=== PATIENT | female | born 1970 | race Caucasian/White ===

== ENCOUNTER 2020-07-08 17:45 | Observation (INO) ==
--- OUTSIDE RECORDS SUMMARY | 2020-07-08 17:47 | External Medical Summary | Continuity of Care Document ---
:1970 Author Name Moisés Lundy, Provider Address Unavailable Unavailable , Care Team Providers Name Role Phone Jayy [email or web address] Unavailable Unavailable Unavailable Assessments Assessed Problems:Otitis externa Problems Otitis externa (380.10) (H60.90) Allergies and Adverse Reactions Morphine Sulfate TABS (Allergy) Percocet TABS (Allergy) Medications Synthroid 75 MCG Oral Tablet Refills: 0 Procedures History of Laparoscopy With Excision Of Ectopic Status: Completed History of Tubal Ligation Status: Comple ana Immunizations Immunizations not documented Family History Mother Family history of Diabetes Mellitus (V18.0) Status: Active Interventions Follow-ups/ReferralsFollow-up as needed; Done: 30 Nov 2009 Plan of Treatment Planned Observations Planned Goals not documented Results No Known Results Results not documented Encounters Appointment; Jayy Lopez M.D. 30-Nov-2009 13:30 Encounter Diagnosis: Problem not documented
--- OUTSIDE RECORDS SUMMARY | 2020-07-08 17:48 | External Medical Summary | Continuity of Care Document ---
:1970 Author Name Moisés Lundy, Provider Address Unavailable Unavailable , Care Team Providers Name Role Phone Jayy Lopez [email or web address] Unavailable Unavailable Unavailable Assessments Assessed Problems:Otitis externa [...]
--- NOTE | 2020-07-08 18:02 | Emergency Department Note ---
History of Present Illness General Chief complaint: Hand Injury/Pain Stated complaint: LEFT HAND CELLULITIS Time Seen by Provider: 07/08/20 17:50 Source: patient Limitations: no limitations History of Present Illness Provider complaint: Left hand pain Onset (ago): day(s) Location: upper extremity and left Radiation: extremity (To forearm) Severity: severe Pain Consistency: + constant Maximum Pain Intensity: 7 Exacerbated By: + movement Associated symptoms: no chest pain, no cough, no fever/chills, no nausea/vomi ting and no shortness of breath Treatments prior to arrival: NSAID This is a 49-year-old female who presents with left hand pain starting last week. The patient stated that the hand near her thumb and wrist started hurting for no reason. It started to get red and swollen. It has progressed over the weekend and so she made appointment to see [facility]. She saw the orthopedic doctor today, Dr. Guerra, who did an x-ray and then subsequently an MRI. She was later called by the nurse from the office and told that her MRI showed cellulitis and she needed to go to the hospital to get admitted for IV antibiotics. She complains of 7 out of 10 pain to the left hand. Is worse when she moves the hand. The pain sometimes goes into her forearm. The pain is constant. She denies any associated fever, chills, chest pain, shortness of breath, cough or cold symptoms, abdominal pain, vomiting, diarrhea or known exposure to COVID-19. She denies any urinary symptoms. She has been taking ibuprofen which slightly improves her pain. Home Medications Home Medications Medication Instructions Recorded Confirmed Type desvenlafaxine succinate [Pristiq] 100 mg PO DAILY 07/08/20 07/08/20 History lamotrigine [Lamictal] 50 mg PO BID 07/08/20 07/08/20 History omeprazole 20 mg PO DAILY 07/08/20 07/08/20 History Allergies Allergy/AdvReac Type Severity Reaction Status Date / Time No Known Allergies Allergy Unverified 07/08/20 18:48 Past Med/Surg History Medical History (Updated 07/08/20 @ 19:58 by Nabor Lucio MD) Anxiety Depression Social History (Updated 07/08/20 @ 18:00 by Nabor Lucio MD) Smoking Status: Never smoker current occupational status: employed Feels Safe at Home: Yes Review of Systems See HPI for pertinent positives & negatives. and A total of 10 systems reviewed and were otherwise negative Physical Exam Vital Signs Vital Signs - 24 hr 07/08/20 17:47 07/08/20 19:00 07/08/20 19:30 Temperature 36.7 C Temperature Source Oral Pulse Rate 93 H 76 75 Pulse Rate from SpO2 Sensor 76 Respiratory Rate 20 15 16 Blood Pressure 159/104 H 149/93 H 153/86 H Blood Pressure Mean 122 111 95 Blood Pressure Position Sitting Pulse Oximetry 98 96 96 Oxygen Delivery Method Room Air Sepsis Recent Fever Within 48 Hours No Sepsis New/Unexplained Change in Mental Status No Sepsis Action Taken by Nursing No Action Required Constitutional: Vital signs reviewed. Eyes: Pupils are equal round reactive to light. Conjunctiva are noninjected. ENT: Pharynx is clear without erythema or exudate. Mucous membranes are moist. Neck supple without meningeal signs. Respiratory: Clear to auscultation bilaterally. Breath sounds are equal bilaterally. Cardiovascular: Regular rate and rhythm. No rubs or gallops. GI: Soft, nondistended and nontender. Bowel sounds are present. Musculoskeletal: Swelling and erythema to the radial aspect of the left hand with erythema extending into the proximal forearm. There is increased warmth. Normal radial pulse. No axillary lymphadenopathy. Integumentary: No cyanosis. or jaundice. Neurological: The patient is awake and alert. No focal deficits. Psychiatric: Normal affect. Not anxious appearing. Course Administered Medications Discontinued Medications Cefazolin Sodium (Ancef 2000mg) 2,000 mg in 15 mls @ 3.75 mls/min IV NOW STA Stop: 07/08/20 18:09 Last Admin: 07/08/20 18:49 Dose: 3.75 mls/min Documented by: [id number] Morphine Sulfate (Morphine Sulfate 2 Mg/Ml Carp) 2 mg IV NOW STA Stop: 07/08/20 18:07 Last Admin: 07/08/20 18:29 Dose: 2 mg Documented by: [id number] Morphine Sulfate (Morphine Sulfate 4 Mg/Ml 1 Ml Carp\Vial) 4 mg IV NOW STA Stop: 07/08/20 19:24 Last Admin: 07/08/20 19:34 Dose: 4 mg Documented by: [id number] Ondansetron HCl (Ondansetron Inj 2 Mg/Ml 2 Ml Vial) 4 mg IV NOW STA Stop: 07/08/20 18:07 Last Admin: 07/08/20 18:29 Dose: 4 mg Documented by: [id number] Medical Decision Making Differential Diagnosis Cellulitis, lymphangitis, osteomyelitis, arthritis, MRSA Medical Records Attestation: I reviewed the patient's medical records. I did perform a limited focused review of portions of the patient's old chart on the electronic medical record. The patient has had no recent pertinent visits to this hospital. Home Medications Current Medication List: was personally reviewed by me Laboratory Data Attestation: I reviewed the patient's lab results. Result diagrams: 07/08/20 18:34 07/08/20 18:34 Lab Results 07/08/20 07/08/20 Range/Units 18:34 18:34 WBC 8.60 (4.8-10.8) K/uL RBC 4.00 L (4.2-5.4) M/uL Hgb 12.7 (12.0-16.0) g/dL Hct 38.0 (37-47) % MCV 95.0 (80-100) fL MCH 31.8 (25-34) pg MCHC 33.4 (32-36) g/dL RDW Std Deviation 45.4 (36.4-46.3) fL RDW Coeff of Carol 13.0 (11.5-14.5) % Plt Count 390 (130-400) K/uL MPV 9.2 (7.4-10.4) fL Immature Gran % (Auto) 0.1 % Neut % (Auto) 62.8 % Lymph % (Auto) 28.0 % [place] % (Auto) 7.7 % Eos % (Auto) 0.9 % Baso % (Auto) 0.5 % Neut # (Auto) 5.40 (1.4-6.5) K/uL Lymph # (Auto) 2.41 (1.2-3.4) K/uL [place] # (Auto) 0.66 H (0.11-0.59) K/uL Eos # (Auto) 0.08 (0-0.5) K/uL Baso # (Auto) 0.04 (0-0.2) K/uL Immature Gran # (Auto) 0.01 (0.00-0.02) K/uL Sodium 140 (136-145) mmol/L Potassium 3.5 (3.5-5.1) mmol/L Chloride 107 (98-107) mmol/L Carbon Dioxide 27 (21-32) mmol/L Anion Gap 6.0 (3-11) BUN 11 (7-18) mg/dl Creatinine 0.70 (0.6-1.2) mg/dl Est Cr Clr Drug Dosing 135.3 ml/min Est GFR ( Amer) 119.6 Est GFR (Non-Af Amer) 103.2 BUN/Creatinine Ratio 16.1 (10-20) Glucose 90 (70-99) mg/dl Calcium 8.9 (8.5-10.1) mg/dl Blood Pressure Blood Pressure Findings: Elevated blood pressure Blood Pressure Disposition: Referred to patients primary care provider [facility] Narrative I did evaluate the patient as noted above. She has the cellulitis to the left hand. She was seen by Dr. Guerra of orthopedic hand surgery who sent her here for admission for IV antibiotics. I did discuss case with Dr. Gao of orthopedics who confirmed that the MRI showed only cellulitis without signs of septic arthritis or osteomyelitis. He recommended IV Ancef and admission to the hospitalist service and they will consult. IV access was established. I did treat the patient with Ancef 2 g IV after 2 sets of blood cultures were obtained. I did order and review the patient's blood work as noted in the electronic medical record. She does not have leukocytosis or anemia. Electrolytes are unremarkable. Nasal MRSA swab is pending. I did treat the pat ient with IV morphine and Zofran. She was initially given 2 mg which did not control her pain. I then gave her an additional dose of 4 mg of morphine IV. I did discuss case with the hospitalist and director of casework. Impression & Plan Cellulitis of left hand Discharge Plan Visit Data Chief Complaint: Hand Injury/Pain Stated Complaint: LEFT HAND CELLULITIS ED Provider: Nabor Lucio Discharge Problem: Cellulitis of left hand Patient Disposition: Being Evaluated by Hospitalist Forms Stand Alone Forms: My [facility] Prescriptions Prescriptions: No Action lamotrigine [Lamictal] 25 mg Tablet 50 mg PO BID RF: 0 omeprazole 20 mg Capsule,Delayed Release(Dr/Ec) 20 mg PO DAILY RF: 0 desvenlafaxine succinate [Pristiq] 100 mg Tablet Extended Release 24 Hr 100 mg PO DAILY RF: 0 Referrals Referrals: PCP,NO [Primary Care Provider] -
[2020-07-08] MEDS ORDERED: ONDANSETRON INJ 2 MG/ML 2 ML VIAL IV STA (18:06)
[2020-07-08] MEDS ORDERED: CEFAZOLIN 2000MG 2,000 MG/15 ML SYR IV STA (18:06)
[2020-07-08] MEDS ORDERED: MoRPHine SULFATE 2 MG/ML CARP IV STA (18:06)
[2020-07-08 18:55] LABS: Basophils # (auto) 0.04 K/uL (0-0.2); Basophils % (auto) 0.5 %; Eosinophils # (auto) 0.08 K/uL (0-0.5); Eosinophils % (auto) 0.9 %; Hemoglobin 12.7 g/dL (12.0-16.0); Immature Granulocytes # (auto) 0.01 K/uL (0.00-0.02); Immature Granulocytes % (auto) 0.1 %; Lymphocytes # (auto) 2.41 K/uL (1.2-3.4); Mean Corpuscular Hemoglobin 31.8 pg (25-34); Mean Corpuscular Hgb Conc 33.4 g/dL (32-36); Mean Platelet Volume 9.2 fL (7.4-10.4); Monocytes # (auto) 0.66 K/uL (0.11-0.59); Monocytes % (auto) 7.7 %; Neutrophils % (auto) 62.8 %; Platelet Count 390 K/uL (130-400); RDW Standard Deviation 45.4 fL (36.4-46.3)
[2020-07-08 19:11] LABS: BUN Creatinine Ratio 16.1 (10-20); Calcium 8.9 mg/dl (8.5-10.1); Creatinine Clr Calc Pharmacy 135.3 ml/min; Est GFR (African American) 119.6; Est GFR (Non-African American) 103.2; Potassium 3.5 mmol/L (3.5-5.1)
[2020-07-08] MEDS ORDERED: MoRPHine SULFATE 4 MG/ML 1 ML CARP\\VIAL IV STA (19:23)
--- NOTE | 2020-07-08 19:35 | History & Physical Report ---
Date of Service July 08, 2020 Assessment & Plan (1) Cellulitis of left hand: With 1 week of steadily progressing left thumb and hand and wrist pain, now with evidence of rapidly spreading erythema and significant edema much worse in the last 24 hours Seen by orthopedic hand surgeon on the day of admission who ordered expedited MRI which showed cellulitis but was concerning enough to recommend admission for IV antibiotics for prompt treatment for rapidly progressing infection Unclear of source but likely from the break in the skin. Could have seeded from somewhere else but she has no other sources of infection on physical exam or signs of infection elsewhere. She does not have a murmur to suggest endocarditis. -Admit for IV antibiotics-we will continue IV cefazolin as her MRSA swab was negative in the ER and she has no history of MRSA -Consult orthopedic surgeon for further evaluation -Follow blood cultures -A pen line was drawn around the area of erythema and this should be followed -Pain control with IV morphine, hydrocodone/APAP, and IV Toradol, and Tylenol as ordered -Elevate the hand and wrist above or at the level of the heart-this was discussed with her nurse on the floor -Okay to have a diet as she would not require surgery at this time as there is no focal abscess to drain, although she may be developing a septic tenosynovitis -Check ESR and CRP in the morning along with repeat CBC which for now is normal (2) Depression: Stable Continue home Pristiq and Lamictal (3) Anxiety: Meds as above (4) Vitamin D deficiency: On vitamin D 50,000 units once a week at home-hold for now (5) Obesity: BMI 45.0 Needs encouragement for weight loss and exercise as an outpatient (6) GERD (gastroesophageal reflux disease): Continue PPI No acute issues (7) DVT prophylaxis: SCDs, hold off on anticoagulation in case of need for surgical procedure Disposition-meets criteria for observation only at this point, but expect that she will be here longer than 1 midnight given rapidly progressing infection and possible need for surgery History of Present Illness Chief Complaint: Hand infection Primary Care Provider: NO PCP This patient is a 49-year-old female with a history of depression with anxiety, GERD, obesity, and vitamin D deficiency who presents to the ER as directed by her orthopedic surgeon for a hand cellulitis to get admitted for IV antibiotics. She reports she started off with just pain in the left thumb 1 week ago that started spreading up her hand and was exquisitely sensitive in the volar aspect of the radial side of the wrist. She discussed her issue with her brother who is a physician and he suggested that she see an orthopedic surgeon. She was able to see the hand surgeon Dr. Guerra this morning who sent her for a stat MRI of the hand. She reports at the time she saw the orthopedic surgeon, she had no redness of the hand. The redness then developed later on the day of admission and was spreading from her thumb down the back of her hand and slightly up her distal forearm. She was having exquisite pain in the wrist and thumb and could barely move any of her fingers. The swelling in her hand is also significantly worsened in the last 24 hours. She denies any fevers/sweats/chills, no nausea or vomiting or diarrhea, no abdominal pain, no headache. No chest pains or shortness of breath. She has no history of previous skin and soft tissue or joint infections. She had no trauma to the hand or thumb, she does not bite her nails, and no insect bites that she is aware of. Apparently, the MRI of the hand did not show any septic arthritis or abscess but showed cellulitis. Unfortunately, I do not have a copy of the radiology report as it was done at an outside facility. She was afebrile in the ER, and her CBC and BMP were within normal limits. She was treated with IV Ancef and IV morphine for pain in the ER. She will be brought in on observation for continued IV antibiotics and further evaluation by the orthopedic surgeon. Allergies Allergy/AdvReac Type Severity Reaction Status Date / Time No Known Allergies Allergy Unverified 07/08/20 18:48 Home Medications Home Medications Medication Instructions Recorded Confirmed Type desvenlafaxine succinate [Pristiq] 100 mg PO DAILY 07/08/20 07/08/20 History lamotrigine [Lamictal] 50 mg PO BID 07/08/20 07/08/20 History omeprazole 20 mg PO DAILY 07/08/20 07/08/20 History Past Med/Surg History Medical History Anxiety Depression GERD (gastroesophageal reflux disease) Obesity Vitamin D deficiency Surgical History History of ectopic History of hysterectomy Performed for endometriosis Family History Other Family history non-contributory Social History (Updated 07/09/20 @ 00:15 by Tati Padron MD) Smoking Status: Never smoker Hx Alcohol Use: Yes Alcohol type: beer Alcohol Intake Frequency: Monthly or Les s Hx Substance Use: No Preferred Language: Icelandic Communication Ability: Effective Senior Engineering 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 Leader Required: No Beliefs That Will Affect Care: None Current Living Situation: Spouse and Family current occupational status: employed 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 Feels Safe at Home: Yes Safety Concerns: Feels Safe At This Time Assistive Devices: Contacts and Glasses Review of Systems Review of Systems: All systems reviewed & are unremarkable except as noted in HPI & below Physical Exam Constitutional: WD/WN, vitals as above + obese Eyes: PERRL, conjunctivae normal, anicteric sclerae ENMT: external ear and nose normal, oropharynx normal Neck: trachea midline, no thyromegaly normal visual inspection; neck nontender Thyroid: no thyroid mass Respiratory: normal respiratory effort, lungs clear to auscultation Cardiovascular: RRR, no murmur, no edema Chest (Breasts): Chest: normal inspection of chest Gastrointestinal (Abdomen): normal bowel sounds, soft, nontender, no hepatosplenomegaly Musculoskeletal: Extremities: no cyanosis and no clubbing Left hand with 2+ edema throughout fingers, dorsal hand and thumb as well as distal forearm Unable to flex fingers Exquisite tenderness to palpation especially over first MCP joint as well as radial wrist volar surface Moderate amount of erythema on the dorsal hand and spreading up the distal forearm as well as the left thumb, no erythematous streaking up the arm No palpable axillary lymphadenopathy on the left 2+ radial pulse on the left Neurovascularly intact in the left fingers Exquisite pain with passive range of motion of fingers especially the thumb Skin: + erythema (Of left hand as above); no rashes Neurologic: moves all extremities and awake; no focal motor deficits Psychiatric: A+Ox3, euthymic affect Lymphatic: no lymphedema Results & Data Results & Data ([facility]) Vital Signs (Past 12 Hours) Vital Signs Temp Pulse Resp BP Pulse Ox 07/08/20 19:00 76 15 149/93 H 96 07/08/20 17:47 36.7 C 93 H 20 159/104 H 98 Laboratory Results 07/08/20 07/08/20 07/08/20 Range/Units 18:55 18:34 18:34 WBC 8.60 (4.8-10.8) K/uL RBC 4.00 L (4.2-5.4) M/uL Hgb 12.7 (12.0-16.0) g/dL Hct 38.0 (37-47) % MCV 95.0 (80-100) fL MCH 31.8 (25-34) pg MCHC 33.4 (32-36) g/dL RDW Std Deviation 45.4 (36.4-46.3) fL RDW Coeff of Carol 13.0 (11.5-14.5) % Plt Count 390 (130-400) K/uL MPV 9.2 (7.4-10.4) fL Immature Gran % (Auto) 0.1 % Neut % (Auto) 62.8 % Lymph % (Auto) 28.0 % [place] % (Auto) 7.7 % Eos % (Auto) 0.9 % Baso % (Auto) 0.5 % Neut # (Auto) 5.40 (1.4-6.5) K/uL Lymph # (Auto) 2.41 (1.2-3.4) K/uL [place] # (Auto) 0.66 H (0.11-0.59) K/uL Eos # (Auto) 0.08 (0-0.5) K/uL Baso # (Auto) 0.04 (0-0.2) K/uL Immature Gran # (Auto) 0.01 (0.00-0.02) K/uL Sodium 140 (136-145) mmol/L Potassium 3.5 (3.5-5.1) mmol/L Chloride 107 (98-107) mmol/L Carbon Dioxide 27 (21-32) mmol/L Anion Gap 6.0 (3-11) BUN 11 (7-18) mg/dl Creatinine 0.70 (0.6-1.2) mg/dl Est Cr Clr Drug Dosing 135.3 ml/min Est GFR ( Amer) 119.6 Est GFR (Non-Af Amer) 103.2 BUN/Creatinine Ratio 16.1 (10-20) Glucose 90 (70-99) mg/dl Calcium 8.9 (8.5-10.1) mg/dl Nasal Screen MRSA (PCR) Pending Code Status & VTE Plan Code Status Full code VTE Prophylaxis Plan VTE Prophylaxis will be ordered: Yes PG Care Time/CCT Total # of Minutes Spent Total Time Spent with Patient: Total time spent is greater than 50% in coordination of care (as documented) at patient's floor/unit and/or counseling patient: Coding Level of Care Code 64532 OBS Care - Level 3 Diagnoses Cellulitis of left hand L03.114 Depression F32.9 Anxiety F41.9 Vitamin D deficiency E55.9 Obesity E66.9 GERD (gastroesophageal reflux disease) K21.9 DVT prophylaxis Z29.9
[2020-07-08] MEDS ORDERED: ACETAMINOPHEN 325 MG TAB PO PRN (21:29)
[2020-07-08] MEDS: MoRPHine SULFATE 4 MG/ML 1 ML CARP\\VIAL IV PRN (21:37)
[2020-07-08] MEDS: KETOROLAC 30 MG/ML VIAL IV PRN (22:00)
[2020-07-08] MEDS: HYDROCODONE/ACETAMOPHEN 5/325MG TAB PO PRN (22:32)
[2020-07-08] MEDS: lamoTRIgine 25 MG TAB PO SCH (22:32)
[2020-07-09] MEDS ORDERED: [UNRECOGNIZED DRUG - REMARK] SCH
[2020-07-09] MEDS: CEFAZOLIN 1000MG 1,000 MG/7.5 ML SYR IV SCH ×3 (01:06→17:10)
[2020-07-09] MEDS: MoRPHine SULFATE 4 MG/ML 1 ML CARP\\VIAL IV PRN ×3 (01:15→19:14)
[2020-07-09] MEDS: HYDROCODONE/ACETAMOPHEN 5/325MG TAB PO PRN ×2 (03:06→17:09)
[2020-07-09] MEDS: KETOROLAC 30 MG/ML VIAL IV PRN ×3 (05:28→20:28)
[2020-07-09 06:47] LABS: Basophils # (auto) 0.03 K/uL (0-0.2); Basophils % (auto) 0.4 %; Eosinophils # (auto) 0.12 K/uL (0-0.5); Eosinophils % (auto) 1.8 %; Hematocrit (blood only) 35.8 % (37-47); Hemoglobin 11.5 g/dL (12.0-16.0); Immature Granulocytes # (auto) 0.02 K/uL (0.00-0.02); Immature Granulocytes % (auto) 0.3 %; Lymphocytes # (auto) 2.34 K/uL (1.2-3.4); Lymphocytes % (auto) 34.7 %; Mean Corpuscular Hemoglobin 31.2 pg (25-34); Mean Corpuscular Hgb Conc 32.1 g/dL (32-36); Mean Platelet Volume 9.4 fL (7.4-10.4); Monocytes # (auto) 0.51 K/uL (0.11-0.59); Monocytes % (auto) 7.6 %; Neutrophils # (auto) 3.73 K/uL (1.4-6.5); Neutrophils % (auto) 55.2 %; Platelet Count 353 K/uL (130-400); RDW Coefficient of Variation 13.2 % (11.5-14.5); RDW Standard Deviation 47.2 fL (36.4-46.3); Red Blood Count 3.69 M/uL (4.2-5.4); White Blood Count 6.75 K/uL (4.8-10.8)
[2020-07-09 07:11] LABS: BUN Creatinine Ratio 18.3 (10-20); C Reactive Protein 4.27 mg/dl (0-0.29); Calcium 8.2 mg/dl (8.5-10.1); Creatinine Clr Calc Pharmacy 143.4 ml/min; Est GFR (African American) 121.9; Est GFR (Non-African American) 105.2; Potassium 3.9 mmol/L (3.5-5.1)
[2020-07-09] MEDS: lamoTRIgine 25 MG TAB PO SCH ×2 (08:45→20:31)
[2020-07-09] MEDS: PANTOprazole 40 MG TAB PO SCH (08:45)
[2020-07-09] MEDS: DESVENLAFAXINE SUCCINATE PO SCH (08:46)
--- NOTE | 2020-07-09 09:04 | Hospitalist Progress Note ---
Date of Service July 09, 2020 Assessment & Plan (1) Cellulitis of left hand: With 1 week of steadily progressing left thumb and hand and wrist pain, now with evidence of rapidly spreading erythema and significant edema much worse in the last 24 hours Seen by orthopedic hand surgeon on the day of admission who ordered expedited MRI which showed cellulitis but was concerning enough to recommend admission for IV antibiotics for prompt treatment for rapidly progressing infection Unclear of source but likely from the break in the skin. Could have seeded from somewhere else (only other break in skin integrity reported as injection to spine for HNP and breast biopsy at the end of April in [place]) but she has no other sources of infection on physical exam or signs of infection elsewhere. She does not have a murmur to suggest endocarditis. * Changed to full admission as will require further IV Abx * Continue Cefazolin * BCx NGTD -- follow * Orthopedics consulted -- appreciate assistance. Plan to continue supportive treatment, no surgery planned. No evidence of abscess on imaging. * --> If erythema worsens or clinical picture worsens, would repeat imaging * Pain control -- morphine, hydrocodone/apap, toradol, tylenol * Continue to elevate hand/wrist above heart * Ordered diet as no plans for surgery at this time * ESR 17, CRP elevated at 4.27 (2) Depression: * Stable * Continue home Pristiq and Lamictal (3) Anxiety: * Meds as above (4) Vitamin D deficiency: * On vitamin D 50,000 units once a week at home-hold for now (5) Obesity: * BMI 45.0 * Needs encouragement for weight loss and exercise as an outpatient (6) GERD (gastroesophageal reflux disease): * Continue PPI * No acute issues (7) DVT prophylaxis: * SCDs, hold off on anticoagulation in case of need for surgical procedure Dispo: likely 1-2 days of further IV abx Admission and Anticipated Discharge Date Admission Date: July 08, 2020 Subjective Patient evaluated this afternoon. Pain controlled with ordered medications, especially the Toradol but still quite painful once this wears off. Denies need for increased dosing or frequency at this time. Erythema decreased for the most part but does have some spreading beyond the markings on her volar aspect of wrist. Most painful lateral wrist, thenar eminence and thumb. Inability to make a fist and states that is much unchanged from day prior. Discussed that likely will need at least another day or so of IV antibiotics but if significantly improved tomorrow we could consider transition to oral agents. No trauma or noted source of injury. She states no major surgeries or trauma but does state she had traveled to [place] where her brother is internal medicine doctor and had injection to her back for HNP and then later had a mammogram which was suspicious and needed a biopsy but was negative for malignancy. This was at the end Dr. Gao arrived to room during conversation. No abscess noted on imaging. [place] erythema improved and no need for intervention at this time and to continue antibiotics as she has had less than 24 hours at this point and will follow along to monitor progress. No fever, chills, chest pain, abdominal pain, nausea, vomiting, dysuria, cough, sputum production. Review of Systems Review of Systems: All systems reviewed & are unremarkable except as noted in HPI & below Physical Exam Constitutional: WD/WN, vitals as above + obese Eyes: PERRL, conjunctivae normal, anicteric sclerae ENMT: external ear and nose normal, oropharynx normal Neck: trachea midline, no thyromegaly normal visual inspection; neck nontender Thyroid: no thyroid mass Respiratory: normal respiratory effort, lungs clear to auscultation Auscultation: + crackles (bibasilar crackles) Cardiovascular: RRR, no murmur, no edema Chest (Breasts): Chest: normal inspection of chest Gastrointestinal (Abdomen): normal bowel sounds, soft, nontender, no hepatosplenomegaly Musculoskeletal: Extremities: no cyanosis and no clubbing Left hand with 2+ edema throughout fingers, dorsal hand and thumb as well as distal forearm Minimal flexion of fingers L hand Erythema within marking and receded except small region volar wrist. no evidence of streaking no pain in forearm/upper arm tender to palpation of thenar eminence, 1st MCP and thumb with flexion NVI pain with PROM 2+ radial pulse Skin: + erythema (to left hand as above); no rashes Neurologic: moves all extremities and awake; no focal motor deficits Psychiatric: A+Ox3, euthymic affect Lymphatic: no lymphedema Results & Data Results & Data ([facility]) Vital Signs (Past 12 Hours) Vital Signs Temp Pulse Resp BP BP Pulse Ox 07/09/20 07:07 36.6 C 69 18 134/75 95 07/09/20 00:13 36.8 C 69 16 131/80 96 07/08/20 21:37 36.9 C 84 16 157/95 H 96 Laboratory Results 07/09/20 07/09/20 07/09/20 Range/Units 05:18 05:18 05:18 WBC 6.75 (4.8-10.8) K/uL RBC 3.69 L (4.2-5.4) M/uL Hgb 11.5 L (12.0-16.0) g/dL Hct 35.8 L (37-47) % MCV 97.0 (80-100) fL MCH 31.2 (25-34) pg MCHC 32.1 (32-36) g/dL RDW Std Deviation 47.2 H (36.4-46.3) fL RDW Coeff of Carol 13.2 (11.5-14.5) % Plt Count 353 (130-400) K/uL MPV 9.4 (7.4-10.4) fL Immature Gran % (Auto) 0.3 % Neut % (Auto) 55.2 % Lymph % (Auto) 34.7 % [place] % (Auto) 7.6 % Eos % (Auto) 1.8 % Baso % (Auto) 0.4 % Neut # (Auto) 3.73 (1.4-6.5) K/uL Lymph # (Auto) 2.34 (1.2-3.4) K/uL [place] # (Auto) 0.51 (0.11-0.59) K/uL Eos # (Auto) 0.12 (0-0.5) K/uL Baso # (Auto) 0.03 (0-0.2) K/uL Immature Gran # (Auto) 0.02 (0.00-0.02) K/uL ESR 17 (0-21) mm/hr Sodium 141 (136-145) mmol/L Potassium 3.9 (3.5-5.1) mmol/L Chloride 108 H (98-107) mmol/L Carbon Dioxide 31 (21-32) mmol/L Anion Gap 2.0 L (3-11) BUN 12 (7-18) mg/dl Creatinine 0.66 (0.6-1.2) mg/dl Est Cr Clr Drug Dosing 143.4 ml/min Est GFR ( Amer) 121.9 Est GFR (Non-Af Amer) 105.2 BUN/Creatinine Ratio 18.3 (10-20) Glucose 94 (70-99) mg/dl Calcium 8.2 L (8.5-10.1) mg/dl C-Reactive Protein 4.27 H (0-0.29) mg/dl Nasal Screen MRSA (PCR) (Negative) 07/08/20 07/08/20 07/08/20 Range/Units 18:55 18:34 18:34 WBC 8.60 (4.8-10.8) K/uL RBC 4.00 L (4.2-5.4) M/uL Hgb 12.7 (12.0-16.0) g/dL Hct 38.0 (37-47) % MCV 95.0 (80-100) fL MCH 31.8 (25-34) pg MCHC 33.4 (32-36) g/dL RDW Std Deviation 45.4 (36.4-46.3) fL RDW Coeff of Carol 13.0 (11.5-14.5) % Plt Count 390 (130-400) K/uL MPV 9.2 (7.4-10.4) fL Immature Gran % (Auto) 0.1 % Neut % (Auto) 62.8 % Lymph % (Auto) 28.0 % [place] % (Auto) 7.7 % Eos % (Auto) 0.9 % Baso % (Auto) 0.5 % Neut # (Auto) 5.40 (1.4-6.5) K/uL Lymph # (Auto) 2.41 (1.2-3.4) K/uL [place] # (Auto) 0.66 H (0.11-0.59) K/uL Eos # (Auto) 0.08 (0-0.5) K/uL Baso # (Auto) 0.04 (0-0.2) K/uL Immature Gran # (Auto) 0.01 (0.00-0.02) K/uL ESR (0-21) mm/hr Sodium 140 (136-145) mmol/L Potassium 3.5 (3.5-5.1) mmol/L Chloride 107 (98-107) mmol/L Carbon Dioxide 27 (21-32) mmol/L Anion Gap 6.0 (3-11) BUN 11 (7-18) mg/dl Creatinine 0.70 (0.6-1.2) mg/dl Est Cr Clr Drug Dosing 135.3 ml/min Est GFR ( Amer) 119.6 Est GFR (Non-Af Amer) 103.2 BUN/Creatinine Ratio 16.1 (10-20) Glucose 90 (70-99) mg/dl Calcium 8.9 (8.5-10.1) mg/dl C-Reactive Protein (0-0.29) mg/dl Nasal Screen MRSA (PCR) Negative (Negative) PG Care Time/CCT Total # of Minutes Spent Total Time Spent with Patient: Total time spent is greater than 50% in co ordination of care (as documented) at patient's floor/unit and/or counseling patient: Coding Level of Care Code 10145 Subseq Hosp Care Lvl 2 Diagnoses Cellulitis of left hand L03.114 Depression F32.9 Anxiety F41.9 Vitamin D deficiency E55.9 Obesity E66.9 GERD (gastroesophageal reflux disease) K21.9 DVT prophylaxis Z29.9
[2020-07-09] MEDS: ONDANSETRON INJ 2 MG/ML 2 ML VIAL IV PRN ×2 (10:41→19:13)
--- NOTE | 2020-07-09 21:56 | Consultation Report ---
DATE OF CONSULTATION: 07/09/2020 HISTORY OF PRESENT ILLNESS: This is a 49-year-old female who is seen at the request of Dr. Tati Padron for left hand and thumb pain. Apparently, the patient has had a 1-week of steady progressing left thumb, hand and left wrist pain without any specific injury. She was seen in the clinic by Dr. Bertram Guerra who had radiographs and an MRI which were ordered. Apparently, there is cellulitis demonstrated on the MRI; however, no evidence of abscess or osteomyelitis or tenosynovitis evident. He referred the patient for further care and management in the hospital with IV antibiotic therapy. The patient denies any specific injury, no other infections, no other upper respiratory infections, no cough, no fever, no chills. Assuming there may be some sort of skin inoculation at the cuticle in the left hand. No prior episodes of cellulitis in the left upper extremity, which she can recall. PAST MEDICAL HISTORY: 1. Recent cellulitis, left hand. 2. Depression. 3. Anxiety. 4. Vitamin D deficiency. 5. Obesity, BMI over 40. 6. GERD. 7. DVT. PAST SURGICAL HISTORY: 1. Treatment for ectopic . 2. Hysterectomy secondary to endometriosis. ALLERGIES: No known drug allergies. MEDICATIONS: Pristiq, Lamictal, and omeprazole. SOCIAL HISTORY: She is . She lives with her spouse. 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 Drinks alcohol monthly. Denies tobacco or drug use. PHYSICAL EXAMINATION: This is a 49-year-old obese female lying supine in the hospital room bed. Her is present at bedside. Nursing is present at the bedside. She is alert and oriented x3. Speech clear and fluent. Affect is appropriate. Focused examination of the left upper extremity demonstrates skin warm, dry and intact. No obvious breaks in skin, no abrasions, no rashes, no skin eruptions or discolorations. She has a pen line surrounding the area of cellulitis, which is streaking to the distal one-third of the forearm extending around the thenar eminence and around the thumb side of the left hand. There is no fluctuance, no fluid collections and no specific induration. There is a generalized cellulitis on the radial aspect of the left distal radius and wrist region extending in the thenar region of the thumb. Negative Kanavel's sign indicating no evidence of tenosynovitis on the flexor surface nor on the extensor surface. There is tenderness over the first dorsal compartment. She has a positive Jimmy's maneuver indicating stenosing tenosynovitis. No suppurative or purulent features. Strength is limited in the left upper extremity compared to the right due to pain and guarding. Radial pulses 2/4. Radial, ulnar and median nerve sensory and motor function are intact. Laboratories are reviewed. Imaging from [facility] reviewed consistent with cellulitis of left upper extremity, hand and wrist. Left thumb pain. IMPRESSION: Left hand cellulitis, left wrist cellulitis, left thumb pain, possible de Quervain's stenosing tenosynovitis. RECOMMENDATION: Continue IV antibiotics, supportive care with heating pad and intermittent icing per patient's preference. We will follow up on rounds tomorrow for reassessment. Nonoperative treatment at this time. Thank you for the opportunity to consult in the care of this patient.
[2020-07-10] MEDS: CEFAZOLIN 1000MG 1,000 MG/7.5 ML SYR IV SCH ×4 (01:43→18:44)
[2020-07-10] MEDS: KETOROLAC 30 MG/ML VIAL IV PRN ×3 (02:21→18:49)
[2020-07-10 06:18] LABS: Basophils # (auto) 0.03 K/uL (0-0.2); Basophils % (auto) 0.4 %; Eosinophils # (auto) 0.15 K/uL (0-0.5); Eosinophils % (auto) 2.2 %; Hematocrit (blood only) 35.5 % (37-47); Hemoglobin 11.6 g/dL (12.0-16.0); Immature Granulocytes # (auto) 0.02 K/uL (0.00-0.02); Immature Granulocytes % (auto) 0.3 %; Lymphocytes # (auto) 2.06 K/uL (1.2-3.4); Lymphocytes % (auto) 30.3 %; Mean Corpuscular Hemoglobin 31.2 pg (25-34); Mean Corpuscular Hgb Conc 32.7 g/dL (32-36); Mean Corpuscular Volume 95.4 fL (80-100); Mean Platelet Volume 9.2 fL (7.4-10.4); Monocytes # (auto) 0.38 K/uL (0.11-0.59); Monocytes % (auto) 5.6 %; Neutrophils # (auto) 4.15 K/uL (1.4-6.5); Neutrophils % (auto) 61.2 %; Platelet Count 360 K/uL (130-400); RDW Coefficient of Variation 12.8 % (11.5-14.5); RDW Standard Deviation 44.6 fL (36.4-46.3); Red Blood Count 3.72 M/uL (4.2-5.4); White Blood Count 6.79 K/uL (4.8-10.8)
[2020-07-10 06:38] LABS: BUN Creatinine Ratio 23.8 (10-20); Calcium 8.7 mg/dl (8.5-10.1); Creatinine Clr Calc Pharmacy 133.3 ml/min; Est GFR (African American) 117.6; Est GFR (Non-African American) 101.4
[2020-07-10] MEDS: PANTOprazole 40 MG TAB PO SCH (08:16)
[2020-07-10] MEDS: lamoTRIgine 25 MG TAB PO SCH ×2 (08:16→20:28)
[2020-07-10] MEDS: DESVENLAFAXINE SUCCINATE PO SCH (08:16)
--- NOTE | 2020-07-10 08:49 | Hospitalist Progress Note ---
Date of Service July 10, 2020 Assessment & Plan (1) Cellulitis of left hand: With 1 week of steadily progressing left thumb and hand and wrist pain, now with evidence of rapidly spreading erythema and significant edema much worse in the last 24 hours Seen by orthopedic hand surgeon on the day of admission who ordered expedited MRI which showed cellulitis but was concerning enough to recommend admission for IV antibiotics for prompt treatment for rapidly progressing infection Unclear of source but likely from the break in the skin. Could have seeded from somewhere else (only other break in skin integrity reported as injection to spine for HNP and breast biopsy at the end of April in [place]) but she has no other sources of infection on physical exam or signs of infection elsewhere. She does not have a murmur to suggest endocarditis. * Changed to full admission as will require further IV Abx * Continue Cefazolin * BCx NGTD -- follow * Orthopedics consulted -- appreciate assistance. Plan to continue supportive treatment, no surgery planned. No evidence of abscess on imaging. * Pain control -- morphine, hydrocodone/apap, toradol, tylenol * Continue to elevate hand/wrist above heart * Ordered diet as no plans for surgery at this time * ESR 17, CRP elevated at 4.27 * Repeat MRI ordered -- will need to make NPO if evidence of drainable abscess (2) Depression: * Stable * Continue home Pristiq and Lamictal (3) Anxiety: * Meds as above (4) Vitamin D deficiency: * On vitamin D 50,000 units once a week at home-hold for now (5) Obesity: * BMI 45.0 * Needs encouragement for weight loss and exercise as an outpatient (6) GERD (gastroesophageal reflux disease): * Continue PPI * No acute issues (7) DVT prophylaxis: * SCDs, hold off on anticoagulation in case of need for surgical procedure Dispo: repeat MRI ordered as above. Will be NPO if appears to need surgical intervention Admission and Anticipated Discharge Date Admission Date: July 09, 2020 Subjective Patient evaluated this morning. Still quite painful with any movement of her hand/wrist. Particularly over thenar eminence, anatomic snuffbox, and thumb with flexion. Erythema improved to dorsal aspect of hand but volar aspect with minimal spread proximally. No fever, chills, chest pain, shortness of breath, abdominal pain, headache, nausea, vomiting or other issue reported. Agreeable to repeating MRI of hand given no significant improvement and spread. Blood cultures negative at this point, but given pain/ROM will repeat imaging for further investigation. If no fluid collection/drainable abscess, patient agreeable to additional night IV abx vs sending out on broad spectrum oral agents/ Questions/concerns addressed at this time. No further headache since getting to eat yesterday after cleared by ortho. Review of Systems Review of Systems: All systems reviewed & are unremarkable except as noted in HPI & below Physical Exam Constitutional: WD/WN, vitals as above + obese Eyes: PERRL, conjunctivae normal, anicteric sclerae ENMT: external ear and nose normal, oropharynx normal Neck: trachea midline, no thyromegaly normal visual inspection; neck nontender Thyroid: no thyroid mass Respiratory: normal respiratory effort, lungs clear to auscultation Auscultation: + wheezes (end expiratory wheezes posterior lung delong) Cardiovascular: RRR, no murmur, no edema Chest (Breasts): Chest: normal inspection of chest Gastrointestinal (Abdomen): normal bowel sounds, soft, nontender, no hepatosplenomegaly Musculoskeletal: Extremities: no cyanosis and no clubbing Skin: erythema to volar wrist, proximal spread outside markings tender to palpation of thenar eminence, anatomic snuffbox as well as over carpal tunnel no significant improvement in ROM L hand, which is elevated above level of the heart in bed Neurologic: moves all extremities and awake; no focal motor deficits Psychiatric: A+Ox3, euthymic affect Lymphatic: no lymphedema Results & Data Results & Data ([facility]) Vital Signs (Past 12 Hours) Vital Signs Temp Pulse Resp BP Pulse Ox 07/10/20 07:55 36.9 C 70 16 144/83 H 96 07/09/20 23:00 36.6 C 70 16 121/75 96 Laboratory Results 07/10/20 07/10/20 Range/Units 05:25 05:25 WBC 6.79 (4.8-10.8) K/uL RBC 3.72 L (4.2-5.4) M/uL Hgb 11.6 L (12.0-16.0) g/dL Hct 35.5 L (37-47) % MCV 95.4 (80-100) fL MCH 31.2 (25-34) pg MCHC 32.7 (32-36) g/dL RDW Std Deviation 44.6 (36.4-46.3) fL RDW Coeff of Carol 12.8 (11.5-14.5) % Plt Count 360 (130-400) K/uL MPV 9.2 (7.4-10.4) fL Immature Gran % (Auto) 0.3 % Neut % (Auto) 61.2 % Lymph % (Auto) 30.3 % [place] % (Auto) 5.6 % Eos % (Auto) 2.2 % Baso % (Auto) 0.4 % Neut # (Auto) 4.15 (1.4-6.5) K/uL Lymph # (Auto) 2.06 (1.2-3.4) K/uL [place] # (Auto) 0.38 (0.11-0.59) K/uL Eos # (Auto) 0.15 (0-0.5) K/uL Baso # (Auto) 0.03 (0-0.2) K/uL Immature Gran # (Auto) 0.02 (0.00-0.02) K/uL Sodium 137 (136-145) mmol/L Potassium 4.0 (3.5-5.1) mmol/L Chloride 105 (98-107) mmol/L Carbon Dioxide 26 (21-32) mmol/L Anion Gap 6.0 (3-11) BUN 17 (7-18) mg/dl Creatinine 0.71 (0.6-1.2) mg/dl Est Cr Clr Drug Dosing 133.3 ml/min Est GFR ( Amer) 117.6 Est GFR (Non-Af Amer) 101.4 BUN/Creatinine Ratio 23.8 H (10-20) Glucose 89 (70-99) mg/dl Calcium 8.7 (8.5-10.1) mg/dl PG Care Time/CCT Total # of Minutes Spent Total Time Spent with Patient: Total time spent is greater than 50% in coordination of care (as documented) at patient's floor/unit and/or counseling patient: Coding Level of Care Code 34506 Subseq Hosp Care Lvl 2 Diagnoses Cellulitis of left hand L03.114 Depression F32.9 Anxiety F41.9 Vitamin D deficiency E55.9 Obesity E66.9 GERD (gastroesophageal reflux disease) K21.9 DVT prophylaxis Z29.9
--- NOTE | 2020-07-10 08:59 | Orthopedic Progress Note ---
Date of Service July 10, 2020 Assessment & Plan (1) Cellulitis of left hand: Left hand cellulitis- clinically improving. On Ancef per primary team WBC's WNL, blood cultures negative, afebrile. No surgical indications at this point. Admission and Anticipated Discharge Date Admission Date: July 09, 2020 Subjective F/u left hand cellulitis. Patient states redness and swelling are improved. Pain continues to be an issue. Physical Exam Physical Exam: Left hand with no erythema. Skin in tact with no sores or lesions. Moderate swelling, improved per patient history. Able to make a fist just lacking end flexion ROM due to swelling. N/V+. Patient A&Ox3. Results & Data ([facility]) Vital Signs (Past 12 Hours) Vital Signs Temp Pulse Resp BP Pulse Ox 07/10/20 07:55 36.9 C 70 16 144/83 H 96 07/09/20 23:00 36.6 C 70 16 121/75 96
[2020-07-10] MEDS: MoRPHine SULFATE 4 MG/ML 1 ML CARP\\VIAL IV PRN (11:56)
[2020-07-10] MEDS ORDERED: GADOBUTROL 65ML VIAL IV ONE (13:27)
[2020-07-10] MEDS: HYDROCODONE/ACETAMOPHEN 5/325MG TAB PO PRN (13:48)
--- NOTE | 2020-07-10 13:58 | Magnetic Resonance Report ---
MRI OF THE LEFT HAND WITH AND WITHOUT CONTRAST CLINICAL HISTORY: L hand/wrist cellulitis, ?abscess COMPARISON STUDY: No previous studies for comparison. TECHNIQUE: Utilizing a 1.5 Aimee magnet and dedicated coil, multiplanar, multi echo imaging of the le ft hand was performed pre and postcontrast administration. Intravenous injection of 12.[address] was uneventful. FINDINGS: Alignment of the left hand is anatomic. No marrow edema is identified to suggest osteomyeli tis. There is mild increased T2 signal within the trapezium and the distal scaphoid. This is likely d egenerative. There is mild adjacent soft tissue edema. No rim-enhancing fluid collection is identifie d to suggest an abscess within the left hand. No mass is identified. Carpal tunnel is unremarkable. N ote is made of moderate subcutaneous edema of the left hand and wrist. There is no associated fluid c ollection. This extends along several extensor tendons but the tendon sheaths are not distended and t here is no associated abnormal enhancement. Flexor tendons are unremarkable. Fracture is identified. IMPRESSION: 1. Moderate subcutaneous edema of the left hand and wrist. This suggests cellulitis. No abscess. No e vidence for osteomyelitis. Fluid adjacent to several extensor tendons. No convincing evidence for ten osynovitis although this would be difficult to exclude by MRI. 2. Mild marrow signal abnormality within the trapezium and scaphoid which is likely degenerative. ACT 112: Negative or not required by law. Electronically signed by: Matteo Krause M.D. 07/10/2020 1:56 PM
[2020-07-11] MEDS ORDERED: POLYETHYLENE (MIRALAX) 17 GM PACK PO PRN (01:16)
[2020-07-11] MEDS: CEFAZOLIN 1000MG 1,000 MG/7.5 ML SYR IV SCH ×2 (02:24→09:49)
[2020-07-11] MEDS: KETOROLAC 30 MG/ML VIAL IV PRN (02:31)
[2020-07-11 06:02] LABS: Hematocrit (blood only) 36.4 % (37-47); Hemoglobin 12.2 g/dL (12.0-16.0); Mean Corpuscular Hemoglobin 32.2 pg (25-34); Mean Corpuscular Hgb Conc 33.5 g/dL (32-36); Mean Platelet Volume 9.1 fL (7.4-10.4); Platelet Count 380 K/uL (130-400); RDW Coefficient of Variation 12.7 % (11.5-14.5); RDW Standard Deviation 44.4 fL (36.4-46.3); Red Blood Count 3.79 M/uL (4.2-5.4); White Blood Count 6.95 K/uL (4.8-10.8)
[2020-07-11 06:18] LABS: BUN Creatinine Ratio 22.9 (10-20); Calcium 8.5 mg/dl (8.5-10.1); Creatinine Clr Calc Pharmacy 127.9 ml/min; Est GFR (African American) 111.8; Est GFR (Non-African American) 96.5; Potassium 4.2 mmol/L (3.5-5.1)
[2020-07-11] MEDS: PANTOprazole 40 MG TAB PO SCH (08:44)
[2020-07-11] MEDS: lamoTRIgine 25 MG TAB PO SCH (08:45)
[2020-07-11] MEDS: DESVENLAFAXINE SUCCINATE PO SCH (08:45)
--- NOTE | 2020-07-11 13:09 | Discharge Summary ---
Date of Service July 11, 2020 Admission HPI Per Admitting Provider This patient is a 49-year-old female with a history of depression with anxiety, GERD, obesity, and vitamin D deficiency who presents to the ER as directed by her orthopedic surgeon for a hand cellulitis to get admitted for IV antibiotics. She reports she started off with just pain in the left thumb 1 week ago that started spreading up her hand and was exquisitely sensitive in the volar aspect of the radial side of the wrist. She discussed her issue with her brother who is a physician and he suggested that she see an orthopedic surgeon. She was able to see the hand surgeon Dr. Guerra this morning who sent her for a stat MRI of the hand. She reports at the time she saw the orthopedic surgeon, she had no redness of the hand. The redness then developed later on the day of admission and was spreading from her thumb down the back of her hand and slightly up her distal forearm. She was having exquisite pain in the wrist and thumb and could barely move any of her fingers. The swelling in her hand is also significantly worsened in the last 24 hours. She denies any fevers/sweats/chills, no nausea or vomiting or diarrhea, no abdominal pain, no headache. No chest pains or shortness of breath. She has no history of previous skin and soft tissue or joint infections. She had no trauma to the hand or thumb, she does not bite her nails, and no insect bites that she is aware of. Apparently, the MRI of the hand did not show any septic arthritis or abscess but showed cellulitis. Unfortunately, I do not have a copy of the radiology report as it was done at an outside facility. She was afebrile in the ER, and her CBC and BMP were within normal limits. She was treated with IV Ancef and IV morphine for pain in the ER. She will be brought in on observation for continued IV antibiotics and further evaluation by the orthopedic surgeon. Principal Diagnosis cellulitis Discharge Exam Constitutional WD/WN, vitals as above Respiratory normal respiratory effort, lungs clear to auscultation Cardiovascular RRR, no murmur, no edema Gastrointestinal (Abdomen) normal bowel sounds, soft, nontender, no hepatosplenomegaly Musculoskeletal no cyanosis or clubbing, extremities motor strength 5/5 left hand with mild edema, no erythema, able to go through ROM but a little bit stiff (patient reports this is improved from admission) Skin no rashes, warm and dry Neurologic moves all extremities and awake Psychiatric A+Ox3, euthymic affect Discharge Data Allergies Allergy/AdvReac Type Severity Reaction Status Date / Time acetaminophen [From Percocet] AdvReac itchiness, Verified 07/09/20 14:56 nausea oxycodone [From Percocet] AdvReac itchiness, Verified 07/09/20 14:56 nausea Consultations 07/08/20 21:29 Consult Orthopedic Surgery Routine Ordered Studies 07/10/20 09:12 MR hand LT wo/w con Stat Hospital Course (1) Cellulitis of left hand: With 1 week of steadily progressing left thumb and hand and wrist pain and rapidly spreading erythema and significant edema at the time of admission Initial MRI ordered outpatient by orthopedics showed cellulitis but was concerning enough to recommend admission for IV antibiotics for prompt treatment for rapidly progressing infection Unclear of source but likely from the break in the skin. Could have seeded from somewhere else (only other break in skin integrity reported as injection to spine for HNP and breast biopsy at the end of April in [place]) but she has no other sources of infection on physical exam or signs of infection elsewhere. She does not have a murmur to suggest endocarditis. * Given IV Cefazolin x 48 hours - responding well, will change to po cephalexin for 7 more days for home * BCx NGTD * Orthopedics consulted -- appreciate assistance. Plan to continue supportive treatment, no surgery planned. No evidence of abscess on repeat MRI * Pain control -- morphine, hydrocodone/apap, toradol, tylenol - has not required narcotic pain relief for past 24 hours - will recommend Tylenol/ibuprofen for home * Continue to elevate hand/wrist above heart * ESR 17, CRP elevated at 4.27 (2) Depression: * Stable * Continue home Pristiq and Lamictal (3) Anxiety: * Meds as above (4) Vitamin D deficiency: * On vitamin D 50,000 units once a week at home-hold for now (5) Obesity: * BMI 45.0 * Needs encouragement for weight loss and exercise as an outpatient (6) GERD (gastroesophageal reflux disease): * Continue PPI * No acute issues (7) DVT prophylaxis: * SCDs, ambulation Total Time Total Time Spent Total Time Spent (In Minutes): greater than 30 minutes Discharge Plan Discharge Items Patient Disposition: Home - Self-Care Reason For Visit: HAND CELLULITIS Discharge Diagnosis: Hand cellulitis Activity: Resume your previous activity Non-emergency contact: Primary Care Provider Call non-emergency contact if: you have any medication questions, your symptoms worsen and you have a fever Follow-up/Referrals: PCP,NO [Primary Care Provider] - (follow up with your primary care provider within about a week ) Diet: Regular Addtl Attending Provider Instructions: (1) Cellulitis of left hand: An MRI was taken of your hand which showed cellulitis but no abscess. Orthopedic surgery was consulted but did not feel that surgery was required You can take acetaminophen for pain 1000 mg three times per day. Do not exceed 3,000 mg in 24 hours. You can use ibuprofen for breakthrough pain but I would not recommend that you take this medication regularly or for more than a couple of days in a row as it can cause gastritis and/or kidney injury if taken frequently. You will complete a week of antibiotics outpatient and a prescription for cephalexin has been sent to your pharmacy. Pending Studies at Discharge: No Stand-Alone Forms: My [facility], Work/School Release (Inpt), Smoking Cessation Medications and DC Order Prescriptions: New cephalexin 500 mg capsule 500 mg PO QID 7 Days Qty: 28 RF: 0 Continued lamotrigine [Lamictal] 25 mg Tablet 50 mg PO BID RF: 0 omeprazole 20 mg Capsule,Delayed Release(Dr/Ec) 20 mg PO DAILY RF: 0 desvenlafaxine succinate [Pristiq] 100 mg Tablet Extended Release 24 Hr 100 mg PO DAILY RF: 0 Discharge Orders: Discharge Order (Routine); Ordered 07/11/20 Ordered By: Francheska Kwok Admission Data Admit Date/Time: 07/09/20 14:44 Attending Provider: Charly Tomlin Admit Provider: Tati Padron Primary Care Provider: PCP,NO Other Providers: Henry Gao Coding Level of Care Code D/C Day Management >30 mins Diagnoses Cellulitis of left hand L03.114 Depression F32.9 Anxiety F41.9 Vitamin D deficiency E55.9 Obesity E66.9 GERD (gastroesophageal reflux disease) K21.9 DVT prophylaxis Z29.9
== END 2020-07-11 16:15 | disposition home or self-care (01) ==
LOC: 3W 17:45 → ED 17:45 → SUATTDRO 20:02 → 3W 21:22 → SUATTDRO 07-09 14:44